=== PATIENT | male | born 1995 ===

== ENCOUNTER 2018-11-04 18:06 | Emergency (ER) | payer OTHER ==
[2018-11-04 18:44] VITALS: BP 153/85
[2018-11-04] MEDS ORDERED: Tetan/Diph/Pertus SYR(Tdap)* 0.5 ML SYR(BOOSTRIX) use SYR contains LATEX IM ONE (18:52)
--- NOTE | 2018-11-04 19:01 | UC ---
Skin Complaint HPI - HPI Summary HPI Summary: 23 yo male presents with LEFT foot puncture wound. He tells me that this morning he was wearing crocs and stepped on a katie nail that penetrated his shoe and punctured his left foot. He cleansed the area with soap and water. He presents here because he is unsure the date of his last tetanus and is concerned about infection. Mild pain currently. Denies fever, chills, drainage, or streaking - History of Current Complaint Chief Complaint: [place] Time Seen by Provider: 11/04/18 18:51 Stated Complaint: PUNCTURE WOUND Hx Obtained From: Patient Onset/Duration: Sudden Onset Onset Severity: Moderate Current Severity: Mild Pain Intensity: 3 Pain Scale Used: 0-10 Numeric - Allergy/Home Medications Allergies/Adverse Reactions: Allergies Allergy/AdvReac Type Severity Reaction Status Date / Time No Known Allergies Allergy Verified 10/21/13 16:10 PMH/Surg Hx/FS Hx/Imm Hx - Additional Past Medical History Additional PMH: None - Surgical History Surgical History: None - Family History Known Family History: Positive: Non-Contributory - Social History Occupation: Employed Full-time Lives: With Family Alcohol Use: None Substance Use Type: None Smoking Status (MU): Never Smoked Tobacco Review of Systems All Other Systems Reviewed And Are Negative: Yes Constitutional: Positive: Negative Skin: Positive: Other - Puncture wound left foot Respiratory: Positive: Negative Cardiovascular: Positive: Negative Neurovascular: Positive: Negative Musculoskeletal: Positive: Negative Neurological: Positive: Negative Psychological: Positive: Negative Physical Exam - Summary Physical Exam Summary: GENERAL: NAD. WDWN. No pain distress. SKIN: LEFT FOOT: Plantar aspect at lateral aspect with 2mm puncture wound. Mild TTP. No streaking, drainage, or FB appreciated. CHEST: No accessory muscle use. Breathing comfortably and in no distress. CV: Pulses intact. Cap refill <2seconds NEURO: Alert. PSYCH: Age appropriate behavior. Triage Information Reviewed: Yes Vital Signs: Initial Vital Signs Temp 99.7 F 11/04/18 18:39 Pulse 99 11/04/18 18:39 Resp 16 11/04/18 18:39 BP 153/85 11/04/18 18:39 Pulse Ox 100 11/04/18 18:39 Vital Signs Reviewed: Yes Course/Dx - Course Course Of Treatment: tdap updated today Will place him on keflex for prophylactic infection. - Diagnoses Provider Diagnosis: Puncture wound of left foot Discharge - Sign-Out/Discharge Documenting (check all that apply): Patient Departure All imaging exams completed and their final reports reviewed: No Studies - Discharge Plan Condition: Stable Disposition: HOME Prescriptions: Cephalexin CAP* [Keflex CAP*] 500 mg PO TID #21 cap Patient Education Materials: Puncture Wound (DC) Referrals: No Primary Care Phys,NOPCP [Primary Care Provider] - Additional Instructions: If you develop a fever, shortness of breath, chest pain, new or worsening symptoms - please call your PCP or go to the ED immediately. - Billing Disposition and Condition Condition: STABLE Disposition: Home
== END 2018-11-04 19:15 | disposition home or self-care (01) ==
LOC: UCEAST 18:06
DX: S91.332A Puncture wound without foreign body, left foot, initial encounter (principal); W22.8XXA Striking against or struck by other objects, initial encounter; Y92.9 Unspecified place or not applicable
CPT/HCPCS: 90471; 90715; 99212; G0463

== ENCOUNTER 2019-07-11 16:32 | Emergency (ER) | payer OTHER ==
--- NOTE | 2019-07-11 16:38 | UC ---
Knee Pain HPI - HPI Summary HPI Summary: 23 yo male presents with LEFT knee pain. He tells me that last night he was on his loft at his house approx 8 feet high and rolled off. During his fall he hit his left knee against their woodstove. Had immediate pain, but was ambulatory following. Last night he rested, iced, and elevated and took ibuprofen with good relief. Today he notes swelling to the knee and pain with weight bearing. Feels stiff. No numbness, tingling, decreased ROM, or instability. - History of Current Complaint Stated Complaint: KNEE INJURY Time Seen by Provider: 07/11/19 16:37 Hx Obtained From: Patient Onset/Duration: Sudden Onset Severity Initially: Moderate Severity Currently: Moderate Pain Intensity: 7 Pain Scale Used: 0-10 Numeric - Allergies/Home Medications Allergies/Adverse Reactions: Allergies Allergy/AdvReac Type Severity Reaction Status Date / Time No Known Allergies Allergy Verified 07/11/19 16:43 Home Medications: Home Medications Ibuprofen 600 mg PO ONCE PRN 07/11/19 [History Confirmed 07/11/19] PMH/Surg Hx/FS Hx/Imm Hx - Additional Past Medical History Additional PMH: None - Surgical History Surgical History: None - Family History Known Family History: Positive: None - Social History Lives: With Family Alcohol Use: None Substance Use Type: None Smoking Status (MU): Never Smoked Tobacco Review of Systems All Other Systems Reviewed And Are Negative: No Constitutional: Positive: Negative Skin: Positive: Negative Respiratory: Positive: Negative Cardiovascular: Positive: Negative Neurovascular: Positive: Negative Musculoskeletal: Positive: Other: - Knee pain Neurological/Mental Status: Positive: Negative Psychological: Positive: Negative Physical Exam - Summary Physical Exam Summary: GENERAL: NAD. WDWN. No pain distress. SKIN: No rashes, sores, lesions, or open wounds. CHEST: No accessory muscle use. Breathing comfortably and in no distress. CV: Pulses intact popliteal, PT, and DP. Cap refill <2seconds MSK: LEFT KNEE: Mild edema. TTP about medial aspect of knee. FROM. Strength 5/ 5. No patella apprehension. Negative Jeffrey, A/P drawer, Gisel, and varus/ valgus stress. NEURO: Alert. Sensations intact and symmetric B/L LEs PSYCH: Age appropriate behavior. Triage Information Reviewed: Yes Vital Signs: Vital Signs: Temp Pulse Resp BP Pulse Ox 99.8 F 104 18 136/80 99 07/11/19 16:47 07/11/19 16:47 07/11/19 16:47 07/11/19 16:47 07/11/19 16:47 Vital Signs Reviewed: Yes Diagnostics - Radiology Knee XR Radiology Interpretation Completed By: Radiologist Summary of Radiographic Findings: IMPRESSION: Unremarkable left knee. Knee Pain Course/Dx - Course Course Of Treatment: XR as above - negative. Suspect contusion/sprain from fall. Advised continued RICE therapy and ibuprofen as directed. - Differential Dx/Diagnosis Provider Diagnosis: Knee contusion Discharge ED - Sign-Out/Discharge Documenting (check all that apply): Patient Departure All imaging exams completed and their final reports reviewed: Yes - Discharge Plan Condition: Stable Disposition: HOME Patient Education Materials: Knee Pain (ED) Forms: *Work Release Referrals: No Primary Care Phys,NOPCP [Primary Care Provider] - Kamini Webb MD [Medical Doctor] - If Needed Additional Instructions: If you develop a fever, shortness of breath, chest pain, new or worsening symptoms - please call your PCP or go to the ED immediately. The X-ray of your knee appears normal today. I suspect your pain, swelling, and stiffness are due to the blunt injury to your knee and should improve with a few days of continued rest, ice, elevation, and ibuprofen as directed. If your symptoms do not improve within 1 week - I recommend that you follow up with Orthopedics at the number below - Billing Disposition and Condition Condition: STABLE Disposition: Home
[2019-07-11 16:48] VITALS: BP 136/80
== END 2019-07-11 17:30 | disposition home or self-care (01) ==
LOC: UCEAST 16:32
DX: S80.02XA Contusion of left knee, initial encounter (principal); W17.89XA Other fall from one level to another, initial encounter; Y92.008 Other place in unspecified non-institutional (private) residence as the place of occurrence of the external cause
CPT/HCPCS: 99212; G0463